=== PATIENT | male | born 1970 | race Caucasian/White ===

== ENCOUNTER 2018-09-15 04:19 | Inpatient (IN) | payer OTHER ==
[~2018-09-15] VITALS: Ht 182.9 cm; Wt 102.7 kg
[~2018-09-15 04:19] MED LIST: Bactrim Ds Tab1 EACH PO; Cyclobenzaprine5 MG PO; Keflex500 MG PO; PRED10 PO; TRIA80TC TOP
[2018-09-15 06:06] LABS: BASOPHILS ABSOLUTE AUTO 0.04 K/mm3 (0.00-0.23); BASOPHILS PERCENT AUTO 0 % (0-2); EOSINOPHILS ABSOLUTE AUTO 0.01 K/mm3 (0.00-0.68); EOSINOPHILS PERCENT AUTO 0 % (0-6); Hematocrit 41.8 % (37.0-53.0); Hemoglobin 13.8 g/dL (13.5-17.5); IMMATURE GRAN ABSOLUTE AUTO 0.06 K/mm3 (0.00-0.10); IMMATURE GRAN PERCENT AUTO 0 % (0-1); LYMPHOCYTES ABSOLUTE AUTO 1.65 K/mm3 (0.84-5.20); LYMPHOCYTES PERCENT AUTO 10 % (21-46); MONOCYTES ABSOLUTE AUTO 0.91 K/mm3 (0.16-1.47); MONOCYTES PERCENT AUTO 6 % (4-13); Mean Corpuscular HGB 29.8 pg (26.0-34.0); Mean Corpuscular Volume 90 fL (80-100); Mean Platelet Volume 8.9 fL (9.1-12.4); NEUTROPHILS ABSOLUTE AUTO 13.56 K/mm3 (1.96-9.15); NEUTROPHILS PERCENT AUTO 84 % (41-73); Platelet Count 292 K/mm3 (150-400); RDW Coefficient Variation 13.3 % (11.7-14.2); RDW Standard Deviation 44.2 fL (35.1-46.3); Red Blood Cell Count 4.63 M/mm3 (4.30-5.90); White Blood Cell Count 16.23 K/mm3 (4.00-11.30)
[2018-09-15 06:25] LABS: Alanine Aminotransfer (ALT/SGP 47 U/L (12-78); Albumin, Blood 3.6 g/dL (3.4-5.0); Albumin/Globulin Ratio 1.1 (0.8-1.8); Alk Phos 86 U/L (50-136); Anion Gap 7 mmol/L (6-16); Aspartate Aminotrans (AST/SGOT 33 U/L (12-37); Blood Urea Nitrogen 19 mg/dL (8-24); Bun/Creatinine Ratio 18.4 (12.0-20.0); CO2, Blood 25 mmol/L (21-32); Calcium, Blood 8.3 mg/dL (8.5-10.1); Chloride, Blood 106 mmol/L (98-108); Creatinine, Blood 1.03 mg/dL (0.60-1.20); Globulin, Blood 3.4 g/dL (2.2-4.0); Glomerular Filtration Rate >60 (60-); Glucose, Blood 115 mg/dL (70-99); Potassium, Blood 3.2 mmol/L (3.5-5.5); Sodium, Blood 138 mmol/L (136-145)
[2018-09-15 10:59] LABS: Source, Urine Clean Catch
[2018-09-15 11:03] LABS: Bilirubin, Urine Neg (Neg); Blood, Urine 1+ (Neg); Glucose Qualitative, Urine Neg (Neg); Ketones, Urine Neg (Neg); Leukocyte Esterase, Urine 1+ (Neg); Nitrite, Urine Neg (Neg); Protein, Urine 1+ (Neg); Specific Gravity, Urine 1.015 (1.003-1.022); Urobilinogen, Urine 3+ (Normal)
[2018-09-15 11:05] LABS: Appearance, Urine Clear (Clear); Color, Urine Yellow (P-Yellow)
[2018-09-15 11:13] LABS: Red Blood Cells, Urine 0-2 /hpf (0-2); White Blood Cells, Urine 0-2 /hpf (0-5)
[2018-09-15 11:14] LABS: Bacteria Not Seen /hpf; Mucus Light (0-Heavy); Squamous Epithelial Cells Rare /hpf (Few)
[2018-09-15 11:15] LABS: U Amphetamine Screen Not Detected; U Barbituate Screen Not Detected; U Benzodiazapine Screen Not Detected; U Buprenorphine Screen Not Detected; U Cannabinoids Screen Not Detected; U Cocaine Screen Not Detected; U Methadone Screen Not Detected; U Methamphetamine Screen Not Detected; U Opiates Screen Not Detected; U Oxycodone Screen Not Detected; U Phencyclidine Screen Not Detected; U Propoxyphene Screen Not Detected
--- NOTE | 2018-09-15 12:53 | NUR ---
PT ARRIVED TO ROOM 328 VIA GURNEY FROM ED. PT AWAKES TO VERBAL STIMULI AND IS A/OX4 BUT SOMNOLENT. SBA INTO BED. PHOTOS TAKEN OF BILAT SHINS, LEFT FORARM AND RIGHT UPPER THIGH. AREAS OF REDNESS MARKED ON RIGHT DICKSON AND THIGH. SPOKE WITH DR REAL REGARDING HTN, PER DR REAL PT MEETS SEPSIS AND TO GIVE SEPSIS FLUIDS FIRST THEN RECHECK BP, IF BP REMAINS ELEVATED GIVE HCTZ. PT AND SPOUSE ORIENTED TO ROOM AND CALL SYSTEM, CALL LIGHT IN REACH. SEE ADMIT ASSESSMENT AND PHOTOS.
--- NOTE | 2018-09-15 15:19 | NUR ---
MULTIPLE SWABS SENT TO LAB OF DRAINAGE TO LEFT FORARM. PT MORE AWAKE AT THIS TIME AND CONVERSING. TEMP OF 103.1, TYLENOL GIVEN. ICE PACK APPLIED AND FAN. PT SITTING UP EATING AT THIS TIME. NS BOLUS X3 RUNNING. WILL CONT TO MONITOR.
--- NOTE | 2018-09-15 16:09 | NUR ---
DR REAL NOTIFIED OF TEMP OF 102.1 AFTER TYLENOL, ICE PACKS AND FAN. PT ON 3RD LITER SEPSIS BOLUS AT THIS TIME AND DID VOID 620ML. ORDERS RECEIVED FOR IBUPROFEN 600MG TO BE ALTERNATED WITH TYLENOL. WILL CONT TO MONITOR.
--- NOTE | 2018-09-15 16:38 | NUR ---
SHIFT SUMMARY- PT A ER ADMIT. PT SOMNOLENT UPON ARRIVAL TO FLOOR BUT DID AWAKE TO VERBAL STIMULI. PT ORIENTED X4 WHEN AWAKE. PT FLUSHED UPON ARRIVAL. RLE RED, HOT AND WITH SMALL SCABS NOTED. REDNESS UP INTO THIGH, AREA MARKED. LLE WARM WITH SOME REDNESS AND SCABS AND POISON OAK WITH SOME PURULENT DRAINAGE TO LEFT FORARM, AREA SWABBED AND PHOTOS TAKEN OF ALL. TEMP OF 103.1, TYLENOL GIVEN AND CAME TO ONLY 102.1, IBUPROFEN GIVEN THEREAFTER. PT MUCH MORE AWAKE AND COVERSATING IN THE AFTERNOON BUT STILL SLEEPING ON AND OFF. BOLUS SEPSIS PROTOCOL STARTED, 3L NS BOLUS GIVEN. PT HAS VOIDED 620ML OF FARA URINE. LS CLEAR, ON RA. HRR. BP ELEVATED UPON ARRIVAL TO FLOOR, NOW AT 138/70. WILL CONT TO MONITOR UNTIL REPORT TO ONCOMING NURSE.
[2018-09-16 05:37] LABS: BASOPHILS ABSOLUTE AUTO 0.02 K/mm3 (0.00-0.23); BASOPHILS PERCENT AUTO 0 % (0-2); EOSINOPHILS PERCENT AUTO 0 % (0-6); Hemoglobin 13.4 g/dL (13.5-17.5); IMMATURE GRAN ABSOLUTE AUTO 0.05 K/mm3 (0.00-0.10); IMMATURE GRAN PERCENT AUTO 0 % (0-1); LYMPHOCYTES ABSOLUTE AUTO 1.26 K/mm3 (0.84-5.20); LYMPHOCYTES PERCENT AUTO 11 % (21-46); MONOCYTES PERCENT AUTO 8 % (4-13); Mean Corpuscular HGB 30.2 pg (26.0-34.0); Mean Corpuscular HGB Conc 33.5 g/dL (31.5-36.5); Mean Corpuscular Volume 90 fL (80-100); Mean Platelet Volume 9.2 fL (9.1-12.4); NEUTROPHILS ABSOLUTE AUTO 9.72 K/mm3 (1.96-9.15); NEUTROPHILS PERCENT AUTO 81 % (41-73); Platelet Count 241 K/mm3 (150-400); RDW Coefficient Variation 13.1 % (11.7-14.2); RDW Standard Deviation 43.9 fL (35.1-46.3); Red Blood Cell Count 4.43 M/mm3 (4.30-5.90); White Blood Cell Count 12.05 K/mm3 (4.00-11.30)
[2018-09-16 05:59] LABS: Alanine Aminotransfer (ALT/SGP 56 U/L (12-78); Albumin, Blood 2.7 g/dL (3.4-5.0); Albumin/Globulin Ratio 0.8 (0.8-1.8); Alk Phos 87 U/L (50-136); Anion Gap 5 mmol/L (6-16); Aspartate Aminotrans (AST/SGOT 32 U/L (12-37); Bilirubin, Total 0.9 mg/dL (0.1-1.0); Blood Urea Nitrogen 13 mg/dL (8-24); Bun/Creatinine Ratio 16.7 (12.0-20.0); CO2, Blood 24 mmol/L (21-32); Calcium, Blood 8.2 mg/dL (8.5-10.1); Chloride, Blood 112 mmol/L (98-108); Creatinine, Blood 0.78 mg/dL (0.60-1.20); Globulin, Blood 3.3 g/dL (2.2-4.0); Glomerular Filtration Rate >60 (60-); Glucose, Blood 138 mg/dL (70-99); Sodium, Blood 141 mmol/L (136-145)
--- NOTE | 2018-09-16 07:16 | NUR ---
sleepy, a+o when awake, call light in reach, ns infusing with no s/sx of infection or infiltration, room air, walking rounds completed with day staff
--- NOTE | 2018-09-16 19:01 | NUR ---
SHIFT SUMMARY: NO ACUTE CHANGES TO REPROT THIS SHIFT. PT SOMNOLENT; SLEEPING T/O SHIFT; CALM AND COOPERATIVE WITH CARE. NO C/O PAIN OR NAUSEA THIS SHIFT. PT UP TO BATHROOM WITH SBA. IV REHYDRATION & IV ABX CONTINUING. REPORT GIVEN TO ONCOMING MYESHA.
[2018-09-16 22:24] LABS: Vancomycin, Trough 7.8 ug/mL (5.0-10.0)
--- NOTE | 2018-09-17 05:42 | NUR ---
SHIFT SUMMARY PATIENT IS ALERT AND ORIENTED, ON ROOM AIR. PATIENT SLEPT MOST OF SHIFT. WOKE UP AND TALKED TO STAFF AND FAMILY ONCE. PATIENT DENIES PAIN. EDUCATED HIM ON THE ANTIBIOTICS HE IS RECIEVING. NO NEW CHANGES OR CONCERNS THROUGHOUT THE NIGHT. VITALS STABLE.
[2018-09-17] MEDS ORDERED: Acetaminophen325 M1 PO (09:42)
[2018-09-17] MEDS ORDERED: CEPH500 PO (09:42)
[2018-09-17] MEDS ORDERED: BENADRYL25 MG PO (09:43)
[2018-09-17] MEDS ORDERED: DOCU100 PO (09:43)
[2018-09-17] MEDS ORDERED: FAMO20 PO (09:49)
[2018-09-17] MEDS ORDERED: HYDCHL25 PO (09:50)
[2018-09-17] MEDS ORDERED: IBUP600 PO (09:50)
[2018-09-17] MEDS ORDERED: ONDA4ODT MM (09:51)
[2018-09-17] MEDS ORDERED: PRED20 PO (09:51)
[2018-09-17] MEDS ORDERED: Triamcinolone A15 G3 TOP (09:52)
[2018-09-17] MEDS ORDERED: Florastor250 MG PO (09:53)
[2018-09-17] MEDS ORDERED: Sulfamethoxazo1 EAC4 PO (09:53)
--- NOTE | 2018-09-17 11:57 | NUR ---
DISCHARGE NOTE PT DISCHARGED AMBULATORY POV WITH SPOUSE. IV DISCONTINUED INTACT. FOLLOW UP INSTRUCTIONS AND RX EDUCATION PROVIDED PRIOR TO DISCHARGE. IMPORTANCE OF TAKING MEDICATIONS DISCUSSED WITH PATIENT AND SPOUSE.
== END 2018-09-17 12:51 | disposition home or self-care (01) | DRG 872 ==
LOC: ER 04:19 → MEDS 10:48 → ENPENDDIS 09-17 10:05 → MEDS 09-17 12:51
PROVIDERS: Emergency Medicine; ADMIT Family Medicine
DX: A41.9 Sepsis, unspecified organism (principal); L03.115 Cellulitis of right lower limb; L25.5 Unspecified contact dermatitis due to plants, except food; I16.0 Hypertensive urgency; F17.210 Nicotine dependence, cigarettes, uncomplicated; Z86.14 Personal history of Methicillin resistant Staphylococcus aureus infection; I10 Essential (primary) hypertension
CPT/HCPCS: 36415; 71046; 80053; 80202; 81001; 83605; 83690; 85025; 87040; 87070; 87075; 87077; 87147; 87186; 87205; 87252; 87254; 93971; 96361; 96365; 96367; 99285-25; A9270; J0360; J0690; J0696; J1650; J3370; J7030; J7050; J7512

== ENCOUNTER 2021-05-02 00:46 | Emergency (ER) | payer SELFPAY ==
[~2021-05-02] VITALS: Ht 182.9 cm; Wt 99.8 kg
[~2021-05-02 00:46] MED LIST changes: +Acetaminophen325 M1 PO; +BENADRYL25 MG PO; +CEPH500 PO; +DOCU100 PO; +FAMO20 PO; +Florastor250 MG PO; +HYDCHL25 PO; +IBUP600 PO; +ONDA4ODT MM; +PRED20 PO; +Sulfamethoxazo1 EAC4 PO; +Triamcinolone A15 G3 TOP
== END 2021-05-02 01:20 | disposition home or self-care (01) ==
LOC: ER 00:46
DX: L23.7 Allergic contact dermatitis due to plants, except food (principal); F17.290 Nicotine dependence, other tobacco product, uncomplicated; I10 Essential (primary) hypertension; Z79.52 Long term (current) use of systemic steroids; Z79.899 Other long term (current) drug therapy
CPT/HCPCS: 96372; 99282-25; J3301